=== PATIENT | female | born 1990 | race Caucasian/White ===

== ENCOUNTER 2022-11-13 12:40 | Emergency (ER) | payer OTHER, SELFPAY ==
[2022-11-13] MEDS ORDERED: Bacitracin 1 PK ONE (14:39)
== END 2022-11-13 14:44 | disposition home or self-care (01) ==
LOC: CSHERS 12:40
DX: S41.111A Laceration without foreign body of right upper arm, initial encounter (principal); W26.9XXA Contact with unspecified sharp object(s), initial encounter
CPT/HCPCS: 12002